=== PATIENT | female | born 1990 | race Caucasian/White ===

== ENCOUNTER 2019-03-30 15:49 | Emergency (ER) | payer BC ==
[~2019-03-30] VITALS: Ht 165.1 cm; Wt 62.1 kg
[2019-03-30 15:55] VITALS: BP 121/73; PULSE 75; RESP 18; Ht 165.1 cm; Wt 62.1 kg
--- NOTE | 2019-03-30 16:13 | ERD ---
ER Documentation Chief Complaint Chief Complaint lt side jaw pain , unable to open mouth HPI 28-year-old female, presents the emergency department, complaining of left side jaw pain after a forced yawning followed by a possible self reduced dislocation. Currently, the patient is complaining of sharp pain with opening of the mouth. Otherwise, the patient is able to open and closed without difficulty and lateral moving. ROS All systems reviewed and are negative except as per history of present illness. Medications Home Meds Active Scripts Baclofen* (Baclofen*) 10 Mg Tablet, 10 MG PO QHS for 5 Days, #5 TAB Prov:NISREEN DOMINIQUE MD 03/30/19 Ibuprofen* (Motrin*) 400 Mg Tab, 400 MG PO Q8, #20 TAB Prov:NISREEN DOMINIQUE MD 03/30/19 FmHx Family History: No diabetes, No coronary disease Physical Exam Vitals Vital Signs Date Temp Pulse Resp B/P (MAP) Pulse Ox O2 O2 Flow FiO2 Time Delivery Rate 03/30/19 98.1 75 18 121/73 98 15:55 (89) Physical Exam Const: No acute distress Head: Atraumatic Eyes: Normal Conjunctiva ENT: Tenderness to palpation of the left TMJ condyle. Full range of motion. Normal External Ears, Nose and Mouth. Neck: Full range of motion. No meningismus. Resp: Clear to auscultation bilaterally Cardio: Regular rate and rhythm, no murmurs Abd: Soft, non tender, non distended. Normal bowel sounds Skin: No petechiae or rashes Back: No midline or flank tenderness Ext: No cyanosis, or edema Neur: Awake and alert Psych: Normal Mood and Affect Procedures/MDM Differential diagnosis include but not limited to: Tonsillar/pharyngeal infection bacterial/viral/fungal, parotitis, allergies, GERD. Less likely peritonsillar abscess, retropharyngeal abscess. No signs of upper respiratory obstruction Physical examination and clinical presentation consistent most likely with TMJ sprain During the ED course the patient remained stable. Clinical impression discussed with patient who agrees with management. The patient is stable to be treated outpatient and will be discharged home with a Rx for ibuprofen. Some side effects of prescribed medications (headache, rash, nausea, vomiting, diarrhea, drowsiness, habituation, bleeding, hypertension, interactions with other medications) were reviewed. The patient was instructed to follow up with the primary care provider in the next 48h. If symptoms persist, worsen or new symptoms develop, then patient should return to the ED immediately. Disclaimer: Inadvertent spelling and grammatical errors are likely due to EHR/dictation software use and do not reflect on the overall quality of patient care. Also, please note that the electronic time recorded on this note does not necessarily reflect the actual time of the patient encounter. Departure Diagnosis: Primary Impression: TMJ (sprain of temporomandibular joint) Condition: Stable Additional Instructions: Thank you very much for allowing us to participate in your care. Your health and safety is our top priority at [facility]. The evaluation in the emergency department has been done to rule out an acute emergency. Chronic, [id number] conditions may have not been evaluated; therefore, you need to follow up with a primary care provider in the next 48h. If symptoms persist, worsen or new symptoms develop, then patient should return to the ED immediately. Call your primary care doctor TOMORROW for an appointment during the next 2-4 days and bring all the information provided. Have prescriptions filled and follow precisely the directions on the label. If the symptoms get worse and your provider is unavailable, return to the Emergency Department immediately. NISREEN DOMINIQUE MD Mar 30, 2019 16:13
[2019-03-30] MEDS ORDERED: BACL10TA PO (16:15)
[2019-03-30] MEDS ORDERED: IBUP-1561 PO (16:15)
== END 2019-03-31 16:16 | disposition home or self-care (01) ==
LOC: E/R 15:49
DX: S03.42XA Sprain of jaw, left side, initial encounter (principal); X58.XXXA Exposure to other specified factors, initial encounter; Y92.9 Unspecified place or not applicable
CPT/HCPCS: 99283